=== PATIENT | female | born 1965 | race Caucasian/White ===

== ENCOUNTER 2017-11-17 10:22 | Outpatient (CLI) | payer BC, OTHER ==
--- NOTE | 2017-11-17 15:22 | MRI ---
MRI RIGHT FOOT WITHOUT CONTRAST: Date: 11/17/17 HISTORY: S96.891D. Right foot pain. Lateral side. COMPARISON: None. FINDINGS: Bones: There is no stress edema. No fracture. No malalignment. No loss of marrow signal on the T1-weighted sequences. Tendons: The visualized portions of the AITFL, PITFL, ATFL, PTFL, and deltoid ligaments appear to be intact. Tendons: Achilles tendon is intact. The flexor and extensor tendons are intact. There is abnormal increased si gnal within the flexor hallucis longus tendon at the level of the metatarsophalangeal joint, as well as some increased fluid signal within the adductor hallucis tendon. Muscles: Muscle bulk is normal. There is some low grade edema at adductor hallucis myotendinous junction. Soft Tissues: No significant edema. There is thickening of the central band of the plantar fascia near the Achilles insertion. There is also a focal area of nodularity along the central band of plantar fascia of midf oot. IMPRESSION: 1. Thickened middle band of the plantar fascia with some midfoot fascial nodularity suggesting chron ic plantar fasciitis and fibromas. 2. Bipartite medial hallux sesamoid with degenerative changes of the metatarsal sesamoid joint. 3. Moderate tendinosis of the flex hallucis longus at the level of the metatarsophalangeal joint. 4. Low grade edema within the muscle and of the tendon of the adductor hallucis, may be sequelae of prior injury. POS: [facility]
== END 2017-11-17 10:23 | disposition home or self-care (01) ==
LOC: SCSMRI 10:22
PROVIDERS: ATTEND Podiatrist
DX: S96.89 Other specified injury of other specified muscles and tendons at ankle and foot level (principal); M19.071 Primary osteoarthritis, right ankle and foot; M67.873 Other specified disorders of tendon, right ankle and foot; R60.0 Localized edema; M62.89 Other specified disorders of muscle

== ENCOUNTER 2018-09-30 13:40 | Emergency (ER) | payer BC, OTHER ==
--- NOTE | 2018-09-30 14:19 | RAD ---
Portable chest: HISTORY: Foreign body sensation in throat COMPARISON: none FINDINGS: Lung thayer are clear. Heart and mediastinum appear unremarkable. Vascularity is normal. Visualized osseous structures unremarkable. IMPRESSION: No acute finding
== END 2018-09-30 14:24 | disposition home or self-care (01) ==
LOC: ERS 13:40
DX: T18.128A Food in esophagus causing other injury, initial encounter (principal); G43.909 Migraine, unspecified, not intractable, without status migrainosus; F32.9 Major depressive disorder, single episode, unspecified; Z79.899 Other long term (current) drug therapy; X58.XXXA Exposure to other specified factors, initial encounter
CPT/HCPCS: 71045

== ENCOUNTER 2025-05-02 13:48 | Outpatient (CLI) | payer BC | END 2025-05-02 13:49 | disposition home or self-care (01) | LOC: BICMAMMO 13:48 | PROVIDERS: ATTEND Family Medicine | DX: Z12.31 Encounter for screening mammogram for malignant neoplasm of breast (principal); M85.89 Other specified disorders of bone density and structure, multiple sites; Z80.3 Family history of malignant neoplasm of breast; Z98.82 Breast implant status | CPT/HCPCS: 77063; 77067; 77080 ==